=== PATIENT | female | born 1955 | race Caucasian/White ===

== ENCOUNTER 2019-12-08 14:31 | Emergency (ER) | payer OTHER ==
[~2019-12-08] VITALS: Ht 170.2 cm; Wt 63.5 kg
[2019-12-08] MEDS ORDERED: LEVOTHYROXINE25 MCG (15:24)
[2019-12-08] MEDS ORDERED: FOLIC ACID20 MG (15:24)
[2019-12-08] MEDS ORDERED: ENALAPRIL MALE2.5 MG (15:24)
[2019-12-08] MEDS ORDERED: ATACAND4 MG (15:24)
[2019-12-08] MEDS ORDERED: ACID REDUCER20 M1 (15:25)
== END 2019-12-08 17:09 | disposition home or self-care (01) ==
LOC: ER 14:31
DX: R10.2 Pelvic and perineal pain (principal)